=== PATIENT | female | born 1975 | race Caucasian/White ===

== ENCOUNTER 2022-01-23 05:36 | Outpatient (CLI) | payer BC ==
[~2022-01-23] VITALS: Ht 172.7 cm; Wt 83.9 kg
[2022-01-30] MEDS ORDERED: MEDR5TAB4 PO (11:09)
[2022-01-30] MEDS ORDERED: ESCI-2 PO (11:09)
[2022-01-30] MEDS ORDERED: ATOR10TA66 PO (11:09)
[2022-01-30] MEDS ORDERED: ESTR0.62 PO (11:09)
[2022-01-30] MEDS ORDERED: CETI10TA49 PO (11:09)
== END 2022-01-30 11:10 | disposition home or self-care (01) ==
LOC: PREOP 05:36
PROVIDERS: ATTEND Surgery
DX: Z01.818 Encounter for other preprocedural examination (principal)

== ENCOUNTER 2022-02-03 07:46 | Day surgery (SDC) | payer BC ==
[~2022-02-03] VITALS: Ht 172.7 cm; Wt 83.9 kg
[~2022-02-03 07:46] MED LIST: ATOR10TA66 PO; CETI10TA49 PO; ESCI-2 PO; ESTR0.62 PO; MEDR5TAB4 PO
[2022-02-03] MEDS ORDERED: LACTATED RINGERS 1,000 ML IV STA (08:05)
[2022-02-03 08:15] VITALS: BP 143/84
[2022-02-03] MEDS ORDERED: MIDAZOLAM 2 MG/2 ML (VERSED) VIAL ONE (08:37)
[2022-02-03] MEDS ORDERED: PROPOFOL INJECTION 50 ML IV ONE (08:37)
[2022-02-03 09:10] VITALS: BP 98/68
--- NOTE | 2022-02-03 09:14 | Progress Note-Post Operative ---
Post-Operative Progess Note Surgeon (s)/Roving Tester Laboratory (s) Surgeon RENATA DE LUNA DO Roving Tester Laboratory: [facility] Pre-Operative Diagnosis Screening Post-Operative Diagnosis Polyps int hemorrhoids Procedure & Operative Findings Date of Procedure 02/03/22 Procedure Performed/Findings PROCEDURE NOTE: After informed consent was obtained, the patient was brought to the endoscopy suite, placed in bed in left lateral decubitus position. She was administered IV sedation by the HOME INSURANCE AGENT who then monitored her vitals the entire time, heart rate, blood pressure and pulse ox and the scope was inserted, pushed all the way to about 140 cm and pushed into the cecum, took a picture of appendiceal orifice and noted the ileocecal valve. Slowly withdrew the scope insufflating to look circumferentially at the sarabia starting in the cecum and up the ascending colon. Found a flat polyp here and took to biopsies with hot forceps. Then continued up to the hepatic flexure, down the transverse colon, splenic flexure, into the descending colon down into the sigmoid and then into the rectal vault. Retroflexed the scope and took a picture of the internal hemorrhoids. The patient tolerated the procedure. She was recovered in endoscopy suite. Anesthesia Type IV sedation by HOME INSURANCE AGENT Estimated Blood Loss Estimated blood loss (mL): scant Specimens/Packing Specimens Removed asc colon polyp RENATA DE LUNA DO Feb 03, 2022 09:14
[2022-02-03 09:15] VITALS: BP 96/61
--- NOTE | 2022-02-03 09:15 | Endoscopy Discharge Instruct ---
Endo Procedure/Findings Findings 1.: Polyp 2.: Internal Hemorrhoids Discharge Instructions - Activity: You might feel a little sleepy until tomorrow. This is due to the medicine you received to relax you. Until tomorrow, you should: NOT drive a car, operate machinery or power tools. NOT drink any alcoholic beverages. NOT make any important decisions or sign importortant papers. Do not return to work until tomorrow, unless otherwise instructed. Resume previous activities tomorrow. Diet: Start by taking liquids. If you tolerate liquids, advance to solid food. 1.: Colonscopy in 5 years Notify Physician - If you experience excessive bleeding, unusual abdominal pain, fever, or chest pain, contact your doctor immediately. RENATA DE LUNA DO Feb 03, 2022 09:15
[2022-02-03] MEDS ORDERED: GLYCOPYRROLATE 0.2 MG/ML (ROBINUL) 2 ML VIAL ONE (09:18)
[2022-02-03 09:44] VITALS: BP 113/65
--- NOTE | 2022-02-03 13:26 | Anesthesia-General Post-Op ---
MAC Patient Condition Mental Status/LOC: Same as Preop Cardiovascular: Satisfactory Nausea/Vomiting: Absent Respiratory: Satisfactory Pain: Controlled Complications: Absent Post Op Complications Complications None Follow Up Care/Instructions Patient Instructions None needed. Anesthesiology Discharge Order Discharge Order Patient is doing well, no complaints, stable vital signs, no apparent adverse anesthesia problems. No complications reported per nursing. ERIN REINOSO CRNA Feb 03, 2022 13:26
== END 2022-02-03 09:45 | disposition home or self-care (01) ==
LOC: ENDO 07:46
PROVIDERS: ATTEND Surgery
DX: Z12.11 Encounter for screening for malignant neoplasm of colon (principal); D12.2 Benign neoplasm of ascending colon; K64.8 Other hemorrhoids; Z85.43 Personal history of malignant neoplasm of ovary; Z90.722 Acquired absence of ovaries, bilateral; F17.200 Nicotine dependence, unspecified, uncomplicated
CPT/HCPCS: 88305